=== PATIENT | female | born 2000 | race Caucasian/White ===

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

== ENCOUNTER 2019-07-20 21:18 | Inpatient (IN) | payer MEDICAID ==
[2019-07-20] MEDS ORDERED: DINOPROSTONE 10 MG VAGINAL INSERT.SR ONE (21:50)
[2019-07-20] MEDS ORDERED: MAG HYDROX/AL HYDROX/SIMETH SUSP 30 ML UDCUP PO PRN (21:51)
[2019-07-20] MEDS ORDERED: ZOLPIDEM TARTRATE 5 MG TABLET PO PRN (21:51)
[2019-07-20] MEDS ORDERED: OXYTOCIN/NORMAL SALINE 20 UNIT/1,000 ML RTUINJ IV PRN (21:51)
[2019-07-20] MEDS ORDERED: DINOPROSTONE 10 MG VAGINAL INSERT.SR PV ONE (21:51)
[2019-07-20] MEDS ORDERED: RINGERS SOLUTION,LACTATED 300 ML IV ONE (21:51)
[2019-07-20] MEDS ORDERED: ACETAMINOPHEN 325 MG TABLET PO PRN (21:51)
[2019-07-20 22:34] LABS: APPEARANCE,URINE CLEAR; BILIRUBIN,URINE NEGATIVE (NEGATIVE); COLOR,URINE STRAW; GLUCOSE, URINE 150 mg/dL (NEGATIVE); KETONES,URINE NEGATIVE (NEGATIVE); LEUKOCYTE ESTERASE,URINE NEGATIVE (NEGATIVE); NITRITE,URINE NEGATIVE (NEGATIVE); PROTEIN,URINE NEGATIVE (NEGATIVE); URINE SPECIFIC GRAVITY 1.008; UROBILINOGEN,URINE NEGATIVE mg/dL (<2.0)
[2019-07-20 22:34] LABS: ABSOLUTE BASOPHILS # (AUTO) 0.1 10^3/uL (0.0-0.2); ABSOLUTE EOSINOPHILS # (AUTO) 0.3 10^3/uL (0.0-0.6); ABSOLUTE LYMPHOCYTES (AUTO) 1.9 10^3/uL (0.5-4.7); ABSOLUTE MONOCYTES (AUTO) 0.8 10^3/uL (0.1-1.4); ABSOLUTE NEUT (AUTO) 8.5 10^3/uL (1.7-8.2); BASOPHILS % (AUTO) 0.5 % (0-2); EOSINOPHILS % (AUTO) 2.7 % (0-6); HEMATOCRIT 31.3 % (36.0-47.0); HEMOGLOBIN 10.4 g/dL (12.0-15.5); LYMPHOCYTES % (AUTO) 16.2 % (13-45); MEAN CORPUSCULAR HEMOGLOBIN 27.6 pg (27.0-33.4); MEAN CORPUSCULAR HGB CONC 33.1 g/dL (32.0-36.0); MEAN CORPUSCULAR VOLUME 83 fl (80-97); MONOCYTES % (AUTO) 6.7 % (3-13); PLATELET COUNT 318 10^3/uL (150-450); RED BLOOD COUNT 3.75 10^6/uL (3.72-5.28); RED CELL DISTRIBUTION WIDTH 14.5 % (11.5-14.0); SEGMENTED NEUTROPHILS % (AUTO) 73.9 % (42-78); TOTAL CELLS COUNTED % (AUTO) 100 %; WHITE BLOOD COUNT 11.5 10^3/uL (4.0-10.5)
[2019-07-20 22:50] LABS: URINE AMPHETAMINES SCREEN NEGATIVE; URINE BARBITURATES SCREEN NEGATIVE; URINE BENZODIAZEPINES SCREEN NEGATIVE; URINE COCAINE SCREEN NEGATIVE; URINE MARIJUANA (THC) SCREEN NEGATIVE; URINE METHADONE SCREEN NEGATIVE; URINE PHENCYCLIDINE SCREEN NEGATIVE
[2019-07-20] MEDS ORDERED: ZOLPIDEM TARTRATE 5 MG TABLET ONE (23:23)
--- NOTE | 2019-07-21 04:55 | Admission Physical ---
Datetime Report Generated by CPN: 07/21/2019 04:55 CURRENT ADMISSION Chief Complaint: Scheduled Induction of Labor Indication for Induction: Post Dates Admit Impression : Postterm, Intrauterine ; Induction of Labor Admit Plan: Admit to Unit; Initiate Labor Induction Protocol ALLERGIES Medication Allergies: No Medication Allergies: No Known Allergies (07/20/2019) Latex: No Latex Allergies OBSTETRICAL HISTORY EDC: 07/11/2019 00:00 : 1 Para: 0 Term: 0 : 0 SAB: 0 IAB: 0 Ectopic: 0 Livin Cesareans: 0 VBACs: 0 Multiple Births: 0 SEE RECORDS Alcohol: No Marijuana : Yes Cocaine: No Other Illicit Drugs: No Cigarettes: Never Smoker. [id number] PHYSICAL EXAM General: Normal HEENT: Normal Neurologic: Normal Thyroid: Normal Heart: Normal Lungs: Normal Breast: Normal Back: Normal Abdomen: Normal Genitourinary Exam: Normal Extremities: Normal DTRs: Normal Pelvic Type: Adequate Vital Signs: Reviewed VAGINAL EXAM Dilatation: 1 Effacement: 80 Station: -2 Contraction Comments: no regular MEMBRANES Pooling: Negative Membranes: Intact FETUS A EGA: 41.3 Monitoring: External US FHR- Baseline: 130 Variability: Moderate 6-25bpm Accelerations: 15X15 Decelerations: None FHR Category: Category I Presentation: Vertex Admit Comment: G1 at 41.3 wks EGA for IOL, scheduled for postdates -Admit to LDR -NPO and IVFs: LR at 125 cc/hr -CEFM and toco -Cervidil at 2230 -GBS negative -Anticipate PLANS FOR LABOR AND DELIVERY Feeding Preference: Breast Benefit of Breast Feed Discussed: Yes INFORMED CONSENT Informed Consent Obtained: Vaginal Delivery; Section Delivery; Induction of Labor; Vacuum/Forceps Assist; Risks, Benefits and Alternatives Discussed Signature: with User ID: [email or web address] : with User ID: [email or web address]
[2019-07-21] MEDS ORDERED: MORPHINE SULFATE 10 MG/ML INJ ONE (06:28)
[2019-07-21] MEDS ORDERED: PROMETHAZINE HCL INJ 25 MG/1 ML VIAL ONE (06:28)
[2019-07-21] MEDS ORDERED: PROMETHAZINE HCL INJ 25 MG/1 ML VIAL IV ONE (06:29)
[2019-07-21] MEDS ORDERED: MORPHINE SULFATE 10 MG/ML INJ IV ONE (06:29)
[2019-07-21] MEDS ORDERED: OXYTOCIN/NORMAL SALINE 20 UNIT/1,000 ML RTUINJ ONE (07:31)
[2019-07-21] MEDS ORDERED: LIDOCAINE 1% INJ-PF (10 MG/ML) 30 ML SDV ONE (07:31)
[2019-07-21] MEDS ORDERED: MISOPROSTOL 0.2 MG TABLET ONE (07:31)
[2019-07-21] MEDS ORDERED: OXYTOCIN 10 UNIT/ML VIAL ONE (07:31)
[2019-07-21] MEDS: RINGERS SOLUTION,LACTATED 1,000 ML IV PRN ×2 (08:23→11:46)
[2019-07-21] MEDS ORDERED: MAG HYDROX/AL HYDROX/SIMETH SUSP 30 ML UDCUP ONE (08:27)
[2019-07-21] MEDS ORDERED: EPHEDRINE SULFATE INJ 50 MG/1 ML AMPULE ONE (10:24)
[2019-07-21] MEDS ORDERED: BUPIVACAINE HCL 0.25 % INJ/PF (2.5 MG/1 ML) 30 ML VIAL ONE (10:24)
[2019-07-21] MEDS ORDERED: FENTANYL/BUPIVACAINE/NS/PF 300 MCG/150 ML RTUINJ EPI ONE (10:24)
[2019-07-21] MEDS ORDERED: FENTANYL CITRATE INJ/PF 100 MCG/2 ML AMPUL ONE (10:27)
[2019-07-21] MEDS ORDERED: OXYTOCIN/NORMAL SALINE 20 UNIT/1,000 ML RTUINJ IV PRN (15:04)
[2019-07-21] MEDS ORDERED: MEASLES,MUMPS&RUBELLA VACC/PF 0.5 ML VIAL SUBCUT PRN (15:04)
[2019-07-21] MEDS ORDERED: ZOLPIDEM TARTRATE 5 MG TABLET PO PRN (15:04)
[2019-07-21] MEDS ORDERED: DIBUCAINE 1% OINTMENT 28 GM TP PRN (15:04)
[2019-07-21] MEDS ORDERED: BENZOCAINE/MENTHOL AEROSOL SPRAY 56 ML TOP PRN (15:04)
[2019-07-21] MEDS ORDERED: DIPH/PERTUSS(ACELL)/TETANUS VAC/PF 0.5 ML SYR (>=10YO) IM PRN (15:04)
[2019-07-21] MEDS ORDERED: ACETAMINOPHEN WITH CODEINE #3 TABLET PO PRN ×2 (15:04)
--- NOTE | 2019-07-21 16:32 | Delivery Summary ---
Del Sum A-C Datetime Report Generated by CPN: 07/21/2019 16:31 DELIVERY PERSONNEL DELIVERY PERSONNEL: [id number] Delivery Doctor:: Edie Barrios CNM Nurse Produce Weigher Certified:: Edie Barrios CNM Labor and Delivery Nurse:: Justine Feldman RNaccountant manager Nurse:: Socorro Bobo RN Nursery Nurse:: Judith Ernst RN Senior Counsel Commercial/CAFE OPERATOR: ST Bert Senior Counsel Commercial/CAFE OPERATOR: Luiza Beatty, FIBER DESIGNER Additional Personnel: : Sonya Mensah RN MATERNAL INFORMATION Delivery Anesthesia: Epidural Medications After Delivery: Pitocin Bolus-Please Comment Meds After Delivery Comment: 20 units/ 1000 ml NSS Delivery QBL: 150 Maternal Complications: None Provider Comments: Female over intact perineum. Head delivered, didn't resitute, attempted to restitute to rt, difficulty delivering shoulders. Rt shoulder hooked with index finger and delivered followed by body and cord. Infant gasped and was placed on maternal abd for resuscitation. Cord clamped x2, began to cry and then cord was cut per FOB. 3VC noted. Placenta delivered spont via peralta. Fundus firmed immediately and pitocin infusing. Bleeding stabilized. Inspection of placenta revealed marginal insertion. LABOR SUMMARY EDC: 07/11/2019 00:00 No. Babies in Womb: 1 Attempted: No Labor Anesthesia: Epidural LABOR INFORMATION Reason for Induction: Post Dates Onset of Labor: 07/21/2019 10:00 Complete Dilatation: 07/21/2019 13:30 Cervical Ripening Agents: Cervidil Oxytocin: Induction Group B Beta Strep: Negative Steroids Given: None Reason Steroids Not Administered: Not Applicable MEMBRANES Membranes Rupture Method: Spontaneous Rupture of Membranes: 07/21/2019 06:20 Length of Rupture (hr): 7.92 Amniotic Fluid Color: Clear Amniotic Fluid Amount: Moderate Amniotic Fluid Odor: Normal STAGES OF LABOR Stage 1 hr: 3 Stage 1 min: 30 Stage 2 hr: 0 Stage 2 min: 45 Stage 3 hr: 0 Stage 3 min: 13 Total Time in Labor hr: 4 Total Time in Labor min: 28 VAGINAL DELIVERY Episiotomy: None Laceration #1: Periurethral Laceration Extension #1: First Degree Laceration Repair: No Laceration Repair Note: superficial, none needed Sponge Count Correct: N/A Sharps Count Correct: N/A CSECTION DELIVERY Primary Indication: N/A Secondary Indication: N/A CSection Incidence: N/A Labor: N/A Elective: N/A CSection Incision: N/A BABY A INFORMATION Delivery Date/Time: 07/21/2019 14:15 Method of Delivery: Vaginal Nurse Controlled Delivery: No Born in Route : No : N/A Forceps: N/A Vacuum Extraction: N/A Shoulder Dystocia : No PRESENTATION/POSITION BABY A Presentation: Cephalic Cephalic Presentation: Vertex Vertex Position: Direct O A Breech Presentation: N/A PLACENTA INFORMATION BABY A Placenta Delivery Time : 07/21/2019 14:28 Placenta Method of Delivery: Spontaneous Placenta Status: Delivered SCORES BABY A Heart Rate 1 min: >100 bpm Resp Effort 1 min: Good Cry Reflex Irritability 1 min: Cough or Sneeze or Pulls Away Muscle Tone 1 min: Flaccid Color 1 min: Blue/Pale SCORE 1 MIN: 6 Heart Rate 5 min: >100 bpm Resp Effort 5 min: Good Cry Reflex Irritability 5 min: Cough or Sneeze or Pulls Away Muscle Tone 5 min: Active Motion Color 5 min: Body [place], Extremities Blue SCORE 5 MIN: 9 INFORMATION BABY A Gestational Age at Delivery: 41.3 Gestational Status: Late Term- 41- 41.6 Weeks Infant Outcome : Liveborn Infant Condition : Stable Sex: Female IDENTIFICATION BABY A Verification Date/Time: 07/21/2019 15:13 ID Band Number: [id number] Mother's Name Verified: Yes RN Verifying : Dg fernandez feldman rn WEIGHT/LENGTH BABY A Infant Birthweight (gm): 3000 Infant Weight (lb): 6 Weight (oz): 10 Infant Length (in): 21.00 Length (cm): 53.34 CORD INFORMATION BABY A No. Cord Vessels: 3 Nuchal Cord : N/A Cord Blood Taken: Yes-For Storage (Mom's Blood type +) Infant Suction: None ASSESSMENT BABY A Infant Complications: Multiple Late Decels Skin to Skin: Yes Advertising Sales Executive/ALS Called : No Infant Care By: Judith Crimm Transferred To: Remains with Mother BABY B INFORMATION : N/A SIGNATURES Assignment: Edie Barrios CNM Signature: with User ID: [email or web address] : with User ID: [email or web address] : I was personally available for consultation and serving as supervising physician for the MLP.
--- NOTE | 2019-07-21 16:33 | Delivery Summary ---
Del Sum A-C Datetime Report Generated by CPN: 07/21/2019 16:33 DELIVERY PERSONNEL DELIVERY PERSONNEL: [id number] Delivery Doctor:: Edie Barrios CNM Nurse Anesthesiologist Certified:: Edie Barrios CNM Labor and Delivery Nurse:: Justine Feldman RNairport tower controller Nurse:: Socorro Bobo RN Nursery Nurse:: Judith Ernst RN Mdm Sr/DIRECTOR OF ESTATE: ST Bert Mdm Sr/DIRECTOR OF ESTATE: Luiza Beatty, PEDIATRIC SOCIAL WORKER Additional Personnel: : Sonya Mensah RN MATERNAL INFORMATION Delivery Anesthesia: Epidural Medications After Delivery: Pitocin Bolus-Please Comment Meds After Delivery Comment: 20 units/ 1000 ml NSS Delivery QBL: 150 Maternal Complications: None Provider Comments: Female over intact perineum. Head delivered, didn't resitute, attempted to restitute to rt, difficulty delivering shoulders. Rt shoulder hooked with index finger and delivered followed by body and cord. Infant gasped and was placed on maternal abd for resuscitation. Cord clamped x2, began to cry and then cord was cut per FOB. 3VC noted. Placenta delivered spont via peralta. Fundus firmed immediately and pitocin infusing. Bleeding stabilized. Inspection of placenta revealed marginal insertion. LABOR SUMMARY EDC: 07/11/2019 00:00 No. Babies in Womb: 1 Attempted: No Labor Anesthesia: Epidural LABOR INFORMATION Reason for Induction: Post Dates Onset of Labor: 07/21/2019 10:00 Complete Dilatation: 07/21/2019 13:30 Cervical Ripening Agents: Cervidil Oxytocin: Induction Group B Beta Strep: Negative Steroids Given: None Reason Steroids Not Administered: Not Applicable MEMBRANES Membranes Rupture Method: Spontaneous Rupture of Membranes: 07/21/2019 06:20 Length of Rupture (hr): 7.92 Amniotic Fluid Color: Clear Amniotic Fluid Amount: Moderate Amniotic Fluid Odor: Normal STAGES OF LABOR Stage 1 hr: 3 Stage 1 min: 30 Stage 2 hr: 0 Stage 2 min: 45 Stage 3 hr: 0 Stage 3 min: 13 Total Time in Labor hr: 4 Total Time in Labor min: 28 VAGINAL DELIVERY Episiotomy: None Laceration #1: Periurethral Laceration Extension #1: First Degree Laceration Repair: No Laceration Repair Note: superficial, none needed Sponge Count Correct: N/A Sharps Count Correct: N/A CSECTION DELIVERY Primary Indication: N/A Secondary Indication: N/A CSection Incidence: N/A Labor: N/A Elective: N/A CSection Incision: N/A BABY A INFORMATION Delivery Date/Time: 07/21/2019 14:15 Method of Delivery: Vaginal Nurse Controlled Delivery: No Born in Route : No : N/A Forceps: N/A Vacuum Extraction: N/A Shoulder Dystocia : No PRESENTATION/POSITION BABY A Presentation: Cephalic Cephalic Presentation: Vertex Vertex Position: Direct O A Breech Presentation: N/A PLACENTA INFORMATION BABY A Placenta Delivery Time : 07/21/2019 14:28 Placenta Method of Delivery: Spontaneous Placenta Status: Delivered SCORES BABY A Heart Rate 1 min: >100 bpm Resp Effort 1 min: Good Cry Reflex Irritability 1 min: Cough or Sneeze or Pulls Away Muscle Tone 1 min: Flaccid Color 1 min: Blue/Pale SCORE 1 MIN: 6 Heart Rate 5 min: >100 bpm Resp Effort 5 min: Good Cry Reflex Irritability 5 min: Cough or Sneeze or Pulls Away Muscle Tone 5 min: Active Motion Color 5 min: Body [place], Extremities Blue SCORE 5 MIN: 9 INFORMATION BABY A Gestational Age at Delivery: 41.3 Gestational Status: Late Term- 41- 41.6 Weeks Infant Outcome : Liveborn Infant Condition : Stable Sex: Female IDENTIFICATION BABY A Verification Date/Time: 07/21/2019 15:13 ID Band Number: [id number] Mother's Name Verified: Yes RN Verifying : Dg fernandez feldman rn WEIGHT/LENGTH BABY A Infant Birthweight (gm): 3000 Infant Weight (lb): 6 Weight (oz): 10 Infant Length (in): 21.00 Length (cm): 53.34 CORD INFORMATION BABY A No. Cord Vessels: 3 Nuchal Cord : N/A Cord Blood Taken: Yes-For Storage (Mom's Blood type +) Infant Suction: None ASSESSMENT BABY A Infant Complications: Multiple Late Decels Skin to Skin: Yes Steel Manager/ALS Called : No Infant Care By: Judith Crimm Transferred To: Remains with Mother BABY B INFORMATION : N/A SIGNATURES Assignment: Edie Barrios CNM Signature: with User ID: [email or web address] : with User ID: [email or web address] : I was personally available for consultation and serving as supervising physician for the MLP.
[2019-07-21] MEDS: DOCUSATE SODIUM 100 MG CAPSULE PO SCH (18:10)
[2019-07-21] MEDS: FERROUS SULFATE 325 MG TABLET PO SCH (18:10)
[2019-07-21] MEDS: IBUPROFEN 800 MG TABLET PO SCH (21:05)
[2019-07-22] MEDS: IBUPROFEN 800 MG TABLET PO SCH ×3 (05:21→21:51)
[2019-07-22 06:28] LABS: ABSOLUTE BASOPHILS # (AUTO) 0.1 10^3/uL (0.0-0.2); ABSOLUTE EOSINOPHILS # (AUTO) 0.3 10^3/uL (0.0-0.6); BASOPHILS % (AUTO) 1.2 % (0-2); EOSINOPHILS % (AUTO) 2.2 % (0-6); HEMATOCRIT 31.6 % (36.0-47.0); HEMOGLOBIN 10.8 g/dL (12.0-15.5); LYMPHOCYTES % (AUTO) 17.9 % (13-45); MEAN CORPUSCULAR HEMOGLOBIN 28.5 pg (27.0-33.4); MEAN CORPUSCULAR HGB CONC 34.3 g/dL (32.0-36.0); MEAN CORPUSCULAR VOLUME 83 fl (80-97); MONOCYTES % (AUTO) 8.5 % (3-13); PLATELET COUNT 277 10^3/uL (150-450); RED BLOOD COUNT 3.81 10^6/uL (3.72-5.28); RED CELL DISTRIBUTION WIDTH 14.6 % (11.5-14.0); SEGMENTED NEUTROPHILS % (AUTO) 70.2 % (42-78); TOTAL CELLS COUNTED % (AUTO) 100 %; WHITE BLOOD COUNT 11.4 10^3/uL (4.0-10.5)
[2019-07-22] MEDS ORDERED: OXYTOCIN/NORMAL SALINE 20 UNIT/1,000 ML RTUINJ IV PRN (08:15)
[2019-07-22] MEDS: SENNOSIDES/DOCUSATE 8.6-50 MG 1 EACH TABLET PO SCH (09:41)
[2019-07-22] MEDS: PRENATAL VITAMIN W DHA CAPSULE PO SCH (09:41)
[2019-07-22] MEDS: DOCUSATE SODIUM 100 MG CAPSULE PO SCH ×2 (09:41→18:09)
[2019-07-22] MEDS: FERROUS SULFATE 325 MG TABLET PO SCH ×2 (09:41→18:09)
--- NOTE | 2019-07-22 12:46 | PDOC PROGRESS REPORT ---
Subjective Progress Note for:: 07/22/19 Subjective:: Patient states that she feels good, although tired. She states that her lochia is decreasing. Patient denies chest pain, shortness of breath, fever/chills or nausea/vomiting. She is ambulating and voiding without difficulty Reason For Visit: Physical Exam - Physical Exam Vital Signs: Temp Pulse Resp BP Pulse Ox 97.5 F 74 16 108/64 99 07/22/19 07:58 07/22/19 07:58 07/22/19 07:58 07/22/19 07:58 07/22/19 07:58 Intake & Output 07/21/19 07/22/19 07/23/19 06:59 06:59 06:59 Intake Total 1000 Balance 1000 Weight 62.3 kg General appearance: PRESENT: no acute distress Respiratory exam: PRESENT: clear to auscultation robel Cardiovascular exam: PRESENT: RRR GI/Abdominal exam: PRESENT: normal bowel sounds, soft - Fundus firm and below umbilicus Extremities exam: ABSENT: calf tenderness, clubbing - No calf pain bilaterally, full ROM, joint swelling, pedal edema, tenderness, +1 edema, +2 edema, other Result Laboratory Results: 07/22/19 06:12 07/22/19 06:12 WBC 11.4 H RBC 3.81 Hgb 10.8 L Hct 31.6 L MCV 83 MCH 28.5 MCHC 34.3 RDW 14.6 H Plt Count 277 Seg Neutrophils % 70.2 Assessment & Plan - Diagnosis (1) Encounter for induction of labor Is this a current diagnosis for this admission?: Yes (2) Post-dates , delivered, current hospitalization Is this a current diagnosis for this admission?: Yes (3) Vaginal delivery Is this a current diagnosis for this admission?: Yes (4) Anemia, Is this a current diagnosis for this admission?: Yes - Time Time Spent with patient: 15-24 minutes Anticipated discharge: Home Within: within 24 hours - Inpatient Certification Based on my medical assessment, after consideration of the patient's comorbidities, presenting symptoms, or acuity I expect that the services needed warrant INPATIENT care.: Yes I certify that my determination is in accordance with my understanding of Medicare's requirements for reasonable and necessary INPATIENT services [42 CFR 412.3e].: Yes - Plan Summary Plan Summary: 1. Continue care
[2019-07-23] MEDS: IBUPROFEN 800 MG TABLET PO SCH (05:15)
[2019-07-23 07:31] VITALS: BP 126/59
--- NOTE | 2019-07-23 10:08 | PDOC DISCHARGE SUMMARY ---
Impression - Admit/DC Date/PCP Admission Date/Primary Care Provider: 07/20/19 21:18 EDWIN HOWARD MD Discharge Date: 07/23/19 - Discharge Diagnosis (1) Encounter for induction of labor Is this a current diagnosis for this admission?: Yes (2) Post-dates , delivered, current hospitalization Is this a current diagnosis for this admission?: Yes (3) Vaginal delivery Is this a current diagnosis for this admission?: Yes - Additional Information Discharge Diet: Regular Discharge Activity: Balance Activity w/Rest, Pelvic Rest Referrals: EDWIN HOWARD MD [Primary Care Provider] - Prescriptions: Ibuprofen [Motrin 800 mg Tablet] 800 mg PO Q8HP PRN #60 tablet PRN Reason: Home Medications: Prenat 115/Iron Fum/Folic/Dss [ 19 Tablet] 1 tab PO DAILY 07/20/19 Ibuprofen [Motrin 800 mg Tablet] 800 mg PO Q8HP PRN #60 tablet 07/23/19 HPI Gestational Age: 41+3 Reason(s) for Admission: Induction of Labor Procedures: NST Intrapartum Procedure(s): Spontaneous Vaginal Delivery Results Laboratory Results: WBC 11.4 10^3/uL (4.0-10.5) H 07/22/19 06:12 RBC 3.81 10^6/uL (3.72-5.28) 07/22/19 06:12 Hgb 10.8 g/dL (12.0-15.5) L 07/22/19 06:12 Hct 31.6 % (36.0-47.0) L 07/22/19 06:12 MCV 83 fl (80-97) 07/22/19 06:12 MCH 28.5 pg (27.0-33.4) 07/22/19 06:12 MCHC 34.3 g/dL (32.0-36.0) 07/22/19 06:12 RDW 14.6 % (11.5-14.0) H 07/22/19 06:12 Plt Count 277 10^3/uL (150-450) 07/22/19 06:12 Lymph % (Auto) 17.9 % (13-45) 07/22/19 06:12 [place] % (Auto) 8.5 % (3-13) 07/22/19 06:12 Eos % (Auto) 2.2 % (0-6) 07/22/19 06:12 Baso % (Auto) 1.2 % (0-2) 07/22/19 06:12 Absolute Neuts (auto) 8.0 10^3/uL (1.7-8.2) 07/22/19 06:12 Absolute Lymphs (auto) 2.0 10^3/uL (0.5-4.7) 07/22/19 06:12 Absolute Monos (auto) 1.0 10^3/uL (0.1-1.4) 07/22/19 06:12 Absolute Eos (auto) 0.3 10^3/uL (0.0-0.6) 07/22/19 06:12 Absolute Basos (auto) 0.1 10^3/uL (0.0-0.2) 07/22/19 06:12 Seg Neutrophils % 70.2 % (42-78) 07/22/19 06:12 Urine Color STRAW 07/20/19 21:45 Urine Appearance CLEAR 07/20/19 21:45 Urine pH 7.0 (5.0-9.0) 07/20/19 21:45 Ur Specific [place] 1.008 07/20/19 21:45 Urine Protein NEGATIVE mg/dL (NEGATIVE) 07/20/19 21:45 Urine Glucose (UA) 150 mg/dL (NEGATIVE) H 07/20/19 21:45 Urine Ketones NEGATIVE mg/dL (NEGATIVE) 07/20/19 21:45 Urine Blood NEGATIVE (NEGATIVE) 07/20/19 21:45 Urine Nitrite NEGATIVE (NEGATIVE) 07/20/19 21:45 Urine Bilirubin NEGATIVE (NEGATIVE) 07/20/19 21:45 Urine Urobilinogen NEGATIVE mg/dL (<2.0) 07/20/19 21:45 Ur Leukocyte Esterase NEGATIVE (NEGATIVE) 07/20/19 21:45 Urine Ascorbic Acid NEGATIVE (NEGATIVE) 07/20/19 21:45 Urine Opiates Screen NEGATIVE 07/20/19 21:45 Urine Methadone Screen NEGATIVE 07/20/19 21:45 Ur Barbiturates Screen NEGATIVE 07/20/19 21:45 Ur Phencyclidine Scrn NEGATIVE 07/20/19 21:45 Ur Amphetamines Screen NEGATIVE 07/20/19 21:45 U Benzodiazepines Scrn NEGATIVE 07/20/19 21:45 Urine Cocaine Screen NEGATIVE 07/20/19 21:45 U Marijuana (THC) Screen NEGATIVE 07/20/19 21:45 RPR NONREACTIVE (NONREACTIVE) 07/20/19 22:15 Blood Type AB POSITIVE 07/20/19 22:15 Antibody Screen NEGATIVE 07/20/19 22:15 Plan Plan of Treatment: follow up in 4 weeks at [facility] for post check
[2019-07-23] MEDS: FERROUS SULFATE 325 MG TABLET PO SCH (10:28)
[2019-07-23] MEDS: DOCUSATE SODIUM 100 MG CAPSULE PO SCH (10:28)
[2019-07-23] MEDS: PRENATAL VITAMIN W DHA CAPSULE PO SCH (10:28)
[2019-07-23] MEDS: SENNOSIDES/DOCUSATE 8.6-50 MG 1 EACH TABLET PO SCH (10:29)
== END 2019-07-23 14:20 | disposition home or self-care (01) | DRG 807 ==
LOC: LR 21:18 → 2S 07-21 16:33
PROVIDERS: ADMIT Obstetrics & Gynecology; ATTEND Obstetrics & Gynecology
PROC: 10E0XZZ Delivery of Products of Conception, External Approach (ICD-10-PCS; principal; 2019-07-21)
PROC: 3E033VJ Introduction of Other Hormone into Peripheral Vein, Percutaneous Approach (ICD-10-PCS; 2019-07-21)
DX: O48.0 Post-term pregnancy (principal); Z37.0 Single live birth; Z3A.41 41 weeks gestation of pregnancy; O71.82 Other specified trauma to perineum and vulva; O76 Abnormality in fetal heart rate and rhythm complicating labor and delivery; O99.02 Anemia complicating childbirth
CPT/HCPCS: 36415; 80307; 81005; 85025; 86592; 86850; 86900; 86901; J2270; J2550; J2590; J3010; J3490